=== PATIENT | male | born 1935 | race Caucasian/White ===

== ENCOUNTER 2017-05-18 16:31 | Inpatient (IN) | payer MEDICARE, OTHER ==
[2017-05-18] MEDS ORDERED: Acetaminophen 500 MG Tab PO ONE (16:40)
[2017-05-18] MEDS ORDERED: Sodium Chloride 0.9% 10 ML Syringe FLUSH PRN (16:43)
[2017-05-18] MEDS ORDERED: Sodium Chloride 0.9% 1,000 ML IV ONE (16:44)
--- NOTE | 2017-05-18 17:06 | EDM.PDOC ---
ED HPI GENERAL MEDICAL PROBLEM - General Chief Complaint: General Stated Complaint: LOSS OF BALANCE Time Seen by Provider: 05/18/17 16:35 Source of Information: Reports: Patient History Limitations: Reports: No Limitations - History of Present Illness INITIAL COMMENTS - FREE TEXT/NARRATIVE: May is an 82-year-old male with a history of cardiac disease with stent placement in 2014 who presents to the emergency department today with his family for evaluation of feeling off balance and unsteady since yesterday. reported that patient also seems to be having a delay with his responses and mildly slurred speech which started yesterday as well. Patient on arrival here complaints of generalized weakness, he denies any headache or visual changes. Patient was noted on initial exam to be febrile with a fever just under 103, patient endorses a nonproductive cough that started 2 days ago, he denies any current chest pain or shortness of breath, he denies any dysuria. Patient has been driving here from [place], his reports he was pulled over for swerving last night and was instructed by the police at that time to not drive any longer. Patient is currently on Coumadin. Patient denies any recent tick bites or nausea, vomiting, diarrhea. Duration: Day(s): (1) - Related Data Allergies Allergy/AdvReac Type Severity Reaction Status Date / Time tetracycline Allergy Rash Verified 05/18/17 16:47 Past Medical History Cardiovascular History: Reports: Afib, Stents Genitourinary History: Reports: Prostate Disorder Oncologic (Cancer) History: Reports: Basal Cell Carcinoma - Infectious Disease History Infectious Disease History: Reports: Chicken Pox - Past Surgical History HEENT Surgical History: Reports: Cataract Surgery, Detached Retina GI Surgical History: Reports: Cholecystectomy, Hernia, Inguinal Male Surgical History: Reports: Prostate Biopsy Musculoskeletal Surgical History: Reports: Knee Replacement Social & Family History - Tobacco Use Smoking Status *Q: Unknown Ever Smoked - Caffeine Use Caffeine Use: Reports: Coffee - Recreational Drug Use Recreational Drug Use: No ED ROS GENERAL - Review of Systems Review Of Systems: See Below Constitutional: Reports: Fever HEENT: Reports: Throat Pain Respiratory: Reports: Cough Endocrine: Reports: No Symptoms GI/Abdominal: Reports: No Symptoms : Reports: No Symptoms Musculoskeletal: Reports: No Symptoms Skin: Reports: No Symptoms Neurological: Reports: Weakness Psychiatric: Reports: No Symptoms ED EXAM, SEPSIS - Physical Exam Exam: See Below Exam Limited By: No Limitations General Appearance: Alert, WD/WN, Mild Distress Eye Exam: Bilateral Eye: EOMI Ears: Normal External Exam Nose: Normal Inspection Throat/Mouth: Normal Inspection, Normal Oropharynx Head: Atraumatic Neck: Normal Inspection, Supple, Non-Tender Respiratory/Chest: No Respiratory Distress, Lungs Clear Cardiovascular: No Murmur, Irregularly Irregular GI/Abdominal Exam: Normal Bowel Sounds, Soft, Non-Tender Back: Normal Inspection Extremities: Normal Inspection, Normal Range of Motion Neurological: Alert, Oriented, CN II-XII Intact, Normal Cognition, Normal Reflexes, No Motor/Sensory Deficits Psychiatric: Normal Affect, Normal Mood Skin: Warm, Dry, Intact EKG INTERPRETATION EKG Date: 05/18/17 Rhythm: A-Fib [place]: Normal P-Wave: Absent QRS: Normal ST-T: Normal QT: Normal Comparison: NA - No Prior EKG Course - Vital Signs Last Recorded V/S: Last Vital Signs Temp 100.1 C H 05/18/17 17:46 Pulse 64 05/18/17 17:46 Resp 22 H 05/18/17 17:46 BP 123/58 L 05/18/17 17:46 Pulse Ox 98 05/18/17 17:46 Feroz is an 82-year-old male who presents to the emergency department today with his family for evaluation of an unsteady gait and slow responses to questions since yesterday. Please refer to history of present illness and focused exam, patient on initial arrival here is febrile with a temp of just under 103, he appears to be in atrial fibrillation on the monitor which she denies any recent history of. EKG confirms this, sepsis alert was fired and appropriate orders that have been initiated. At this time it is not clear what patient's source is, he does endorse a nonproductive cough for 2 days, he denies any GI complaints or dysuria. Blood work is pending, chest x-ray is ordered, we will check a urine and blood cultures as well. Patient was given a gram of Tylenol for his fever, his blood pressure has remained stable and he is not tachycardic and from his medication list does not appear to be on a beta fabi at this time. NIH score is 0, patient on exam does not exhibit any neuro/focal deficits. reports patient is in chronic atrial fibrillation. Blood work returns with left shift, mildly low platelet count, mildly elevated CRP and Troponin. Lactic acid is normal. Strep is negative. Likely RLL infiltrate on CXR on my and Dr. Romano exam. CT of head negative on my review , awaiting radiology report. Blood cultures pending. UA negative for UTI. patient given one liter of NS, now running at 125 ml/hr. Discussed with patient observation admission for pneumonia and serial troponins. Patient remains chest pain free. Rocephin and Zithromax started IV. Patient agreeable to plan of care, Dr. Sepulveda, hospitalist notified and will admit patient. INR subtherapeutic at 1.8. - Orders/Labs/Meds Orders: Active Orders 24 hr Category Date Time Status EKG Documentation Completion [RC] ASDIRECTED Care 05/18/17 16:41 Active Peripheral IV Care [RC] . DIRECTED Care 05/18/17 16:43 Active Chest 2V [CR] Stat Exams 05/18/17 16:42 Taken Head wo Cont [CT] Stat Exams 05/18/17 17:19 Taken CULTURE BLOOD [BC] Urgent Lab 05/18/17 17:25 Received CULTURE BLOOD [BC] Urgent Lab 05/18/17 17:30 Received CULTURE STREP A CONFIRMATION [RM] Stat Lab 05/18/17 16:58 Results STREP SCRN A RAPID W CULT CONF [RM] Stat Lab 05/18/17 16:58 Results Azithromycin [Zithromax] 500 mg Med 05/18/17 18:15 Ordered Sodium Chloride 0.9% [Normal Saline] 250 ml IV Q24H Sodium Chloride 0.9% [Normal Saline] 1,000 ml Med 05/18/17 18:00 Active IV ASDIRECTED Sodium Chloride 0.9% [Saline Flush] Med 05/18/17 16:43 Active 10 ml FLUSH ASDIRECTED PRN cefTRIAXone [Rocephin] 1 gm Med 05/18/17 18:13 Ordered Sodium Chloride 0.9% [Normal Saline] 50 ml IV ONETIME Blood Culture x2 Reflex Set [OM.PC] Urgent Oth 05/18/17 16:41 Ordered Peripheral IV Insertion Adult [OM.PC] Routine Oth 05/18/17 16:43 Ordered EKG 12 Lead [EK] Stat Ther 05/18/17 16:41 Ordered Medication Orders Sodium Chloride (Normal Saline) 1,000 mls @ 125 mls/hr IV ASDIRECTED IDALIA Last Admin: 05/18/17 17:59 Dose: 125 mls/hr Azithromycin 500 mg/ Sodium (Chloride) 250 mls @ 250 mls/hr IV Q24H IDALIA Ceftriaxone Sodium 1 gm/ (Sodium Chloride) 50 mls @ 100 mls/hr IV ONETIME ONE Stop: 05/18/17 18:42 Sodium Chloride (Saline Flush) 10 ml FLUSH ASDIRECTED PRN PRN Reason: Keep Vein Open Last Admin: 05/18/17 16:55 Dose: 10 ml Labs: Laboratory Tests 05/18/17 05/18/17 05/18/17 Range/Units 16:56 16:56 16:56 WBC 8.7 (4.5-11.0) K/uL RBC 4.17 L (4.30-5.90) M/uL Hgb 13.7 (12.0-15.0) g/dL Hct 39.5 L (40.0-54.0) % MCV 95 (80-98) fL MCH 33 H (27-31) pg MCHC 35 (32-36) % Plt Count 106 L (150-400) K/uL Neut % (Auto) 82 H (36-66) % Lymph % (Auto) 8 L (24-44) % [place] % (Auto) 10 H (2-6) % Eos % (Auto) 0 L (2-4) % Baso % (Auto) 0 (0-1) % PT (9.5-12.0) sec INR (0.80-1.20) Sodium 131 L (140-148) mmol/L Potassium 4.1 (3.6-5.2) mmol/L Chloride 100 (100-108) mmol/L Carbon Dioxide 24 (21-32) mmol/L Anion Gap 11.1 (5.0-14.0) mmol/L BUN 14 (7-18) mg/dL Creatinine 1.3 (0.8-1.3) mg/dL Est Cr Clr Drug Dosing 47.26 mL/min Estimated GFR (MDRD) 53 L (>60) Glucose 121 H (74-106) mg/dL Lactic Acid 1.8 (0.4-2.0) mmol/L Calcium 7.8 L (8.5-10.1) mg/dL Total Bilirubin 1.0 (0.2-1.0) mg/dL AST 36 (15-37) U/L ALT 34 (12-78) U/L Alkaline Phosphatase 128 H (46-116) U/L Troponin I 0.069 H* (0.000-0.056) ng/mL C-Reactive Protein 3.37 H (0.0-0.3) mg/dL Total Protein 6.6 (6.4-8.2) g/dL Albumin 3.3 L (3.4-5.0) g/dL Globulin 3.3 (2.3-3.5) g/dL Albumin/Globulin Ratio 1.0 L (1.2-2.2) Urine Color Urine Appearance Urine pH (4.5-8.0) Ur Specific [place] (1.008-1.030) Urine Protein (NEGATIVE) mg/dL Urine Glucose (UA) (NEGATIVE) mg/dL Urine Ketones (NEGATIVE) mg/dL Urine Occult Blood (NEGATIVE) Urine Nitrite (NEGAITVE) Urine Bilirubin (NEGATIVE) Urine Urobilinogen (NORMAL) mg/dL Ur Leukocyte Esterase (NEGATIVE) Urine RBC (0-5) Urine WBC (0-5) Ur Epithelial Cells Amorphous Sediment Urine Bacteria Urine Mucus 05/18/17 05/18/17 Range/Units 16:56 17:43 WBC (4.5-11.0) K/uL RBC (4.30-5.90) M/uL Hgb (12.0-15.0) g/dL Hct (40.0-54.0) % MCV (80-98) fL MCH (27-31) pg MCHC (32-36) % Plt Count (150-400) K/uL Neut % (Auto) (36-66) % Lymph % (Auto) (24-44) % [place] % (Auto) (2-6) % Eos % (Auto) (2-4) % Baso % (Auto) (0-1) % PT 20.0 H (9.5-12.0) sec INR 1.82 H (0.80-1.20) Sodium (140-148) mmol/L Potassium (3.6-5.2) mmol/L Chloride (100-108) mmol/L Carbon Dioxide (21-32) mmol/L Anion Gap (5.0-14.0) mmol/L BUN (7-18) mg/dL Creatinine (0.8-1.3) mg/dL Est Cr Clr Drug Dosing mL/min Estimated GFR (MDRD) (>60) Glucose (74-106) mg/dL Lactic Acid (0.4-2.0) mmol/L Calcium (8.5-10.1) mg/dL Total Bilirubin (0.2-1.0) mg/dL AST (15-37) U/L ALT (12-78) U/L Alkaline Phosphatase (46-116) U/L Troponin I (0.000-0.056) ng/mL C-Reactive Protein (0.0-0.3) mg/dL Total Protein (6.4-8.2) g/dL Albumin (3.4-5.0) g/dL Globulin (2.3-3.5) g/dL Albumin/Globulin Ratio (1.2-2.2) Urine Color Yellow Urine Appearance Clear Urine pH 5.0 (4.5-8.0) Ur Specific [place] 1.015 (1.008-1.030) Urine Protein Negative (NEGATIVE) mg/dL Urine Glucose (UA) Normal (NEGATIVE) mg/dL Urine Ketones Negative (NEGATIVE) mg/dL Urine Occult Blood Moderate (NEGATIVE) Urine Nitrite Negative (NEGAITVE) Urine Bilirubin Negative (NEGATIVE) Urine Urobilinogen Normal (NORMAL) mg/dL Ur Leukocyte Esterase Negative (NEGATIVE) Urine RBC 0-5 (0-5) Urine WBC 0-5 (0-5) Ur Epithelial Cells Rare Amorphous Sediment Not seen Urine Bacteria Few Urine Mucus Few Meds: Medications Generic Name Dose Route Start Last Admin Trade Name Freq PRN Reason Stop Dose Admin Sodium Chloride 1,000 mls @ 125 mls/hr 05/18/17 18:00 05/18/17 17:59 Normal Saline IV 125 mls/hr ASDIRECTED IDALIA Administration Azithromycin 500 mg/ Sodium 250 mls @ 250 mls/hr 05/18/17 18:15 Chloride IV Q24H IDALIA Ceftriaxone Sodium 1 gm/ 50 mls @ 100 mls/hr 05/18/17 18:13 Sodium Chloride IV 05/18/17 18:42 ONETIME ONE Sodium Chloride 10 ml 05/18/17 16:43 05/18/17 16:55 Saline Flush FLUSH 10 ml ASDIRECTED PRN Administration Keep Vein Open Discontinued Medications Generic Name Dose Route Start Last Admin Trade Name Sandra PRN Reason Stop Dose Admin Acetaminophen 1,000 mg 05/18/17 16:40 05/18/17 16:56 Tylenol Extra Strength PO 05/18/17 16:41 1,000 mg ONETIME ONE Administration Sodium Chloride 1,000 mls @ 999 mls/hr 05/18/17 16:44 05/18/17 16:54 Normal Saline IV 05/18/17 17:44 999 mls/hr .BOLUS ONE Administration Departure - Departure Time of Disposition: 18:30 Disposition: Admitted As Inpatient 65 Condition: Good Clinical Impression: Elevated troponin, Chronic atrial fibrillation, Anticoagulant long-term use Pneumonia Qualifiers: Pneumonia type: due to unspecified organism Laterality: right Lung location: lower lobe of lung Qualified Code(s): J18.1 - Lobar pneumonia, unspecified organism - Discharge Information Referrals: PCP,None [Primary Care Provider] - Forms: ED Department Discharge - My Orders Last 24 Hours: My Active Orders 05/18/17 16:41 EKG Documentation Completion [RC] ASDIRECTED Blood Culture x2 Reflex Set [OM.PC] Urgent EKG 12 Lead [EK] Stat 05/18/17 16:42 Chest 2V [CR] Stat 05/18/17 16:43 Peripheral IV Care [RC] . DIRECTED Sodium Chloride 0.9% [Saline Flush] 10 ml FLUSH ASDIRECTED PRN Peripheral IV Insertion Adult [OM.PC] Routine 05/18/17 16:58 CULTURE STREP A CONFIRMATION [RM] Stat STREP SCRN A RAPID W CULT CONF [RM] Stat 05/18/17 17:19 Head wo Cont [CT] Stat 05/18/17 17:25 CULTURE BLOOD [BC] Urgent 05/18/17 17:30 CULTURE BLOOD [BC] Urgent 05/18/17 18:00 Sodium Chloride 0.9% [Normal Saline] 1,000 ml IV ASDIRECTED 05/18/17 18:13 cefTRIAXone [Rocephin] 1 gm Sodium Chloride 0.9% [Normal Saline] 50 ml IV ONETIME 05/18/17 18:15 Azithromycin [Zithromax] 500 mg Sodium Chloride 0.9% [Normal Saline] 250 ml IV Q24H - Assessment/Plan Last 24 Hours: My Active Orders 05/18/17 16:41 EKG Documentation Completion [RC] ASDIRECTED Blood Culture x2 Reflex Set [OM.PC] Urgent EKG 12 Lead [EK] Stat 05/18/17 16:42 Chest 2V [CR] Stat 05/18/17 16:43 Peripheral IV Care [RC] . DIRECTED Sodium Chloride 0.9% [Saline Flush] 10 ml FLUSH ASDIRECTED PRN Peripheral IV Insertion Adult [OM.PC] Routine 05/18/17 16:58 CULTURE STREP A CONFIRMATION [RM] Stat STREP SCRN A RAPID W CULT CONF [RM] Stat 05/18/17 17:19 Head wo Cont [CT] Stat 05/18/17 17:25 CULTURE BLOOD [BC] Urgent 05/18/17 17:30 CULTURE BLOOD [BC] Urgent 05/18/17 18:00 Sodium Chloride 0.9% [Normal Saline] 1,000 ml IV ASDIRECTED 05/18/17 18:13 cefTRIAXone [Rocephin] 1 gm Sodium Chloride 0.9% [Normal Saline] 50 ml IV ONETIME 05/18/17 18:15 Azithromycin [Zithromax] 500 mg Sodium Chloride 0.9% [Normal Saline] 250 ml IV Q24H
[2017-05-18] MEDS ORDERED: Sodium Chloride 0.9% 1,000 ML IV SCH ×2 (18:00→20:27)
[2017-05-18] MEDS ORDERED: cefTRIAXone 1 GM in Sodium Chloride 0.9% 50 ML IV ONE (18:13)
[2017-05-18] MEDS ORDERED: Azithromycin 500 MG in Sodium Chloride 0.9% 250 ML IV SCH (18:15)
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
[2017-05-18] MEDS ORDERED: Acetaminophen 325 MG Tab PO PRN (20:27)
[2017-05-18] MEDS ORDERED: Ondansetron 4 MG Tab.DIS PO PRN (20:27)
[2017-05-18] MEDS ORDERED: guaiFENesin/Dextromethorphan 100-10 MG/5 ML Soln 10 ML Cup PO PRN (20:27)
[2017-05-18] MEDS ORDERED: Polyethylene Glycol 3350 Powder 17 GM Packet PO PRN (20:27)
[2017-05-18] MEDS ORDERED: Zolpidem 5 MG Tab PO PRN (20:38)
[2017-05-18] MEDS ORDERED: Warfarin 5 MG Tab PO SCH (20:45)
[2017-05-19] MEDS ORDERED: Lisinopril 5 MG Tab PO SCH (07:30)
[2017-05-19] MEDS ORDERED: Pantoprazole 40 MG Tab.CR PO SCH (07:30)
--- NOTE | 2017-05-19 08:28 | CR ---
Mild cardiomegaly. Emphysematous change. No focal consolidation.
[2017-05-19] MEDS ORDERED: Vitamin B6-pyridOXINE 50 MG Tab PO SCH (09:00)
[2017-05-19] MEDS ORDERED: Non-Formulary Medication 1 Each (Potassium [Potassium] 99 MG) PO SCH (09:00)
[2017-05-19] MEDS ORDERED: Lactobacillus Rhamnosus GG (Probiotic) Cap PO SCH (09:00)
[2017-05-19] MEDS ORDERED: Aspirin 81 MG Tab.Chew PO SCH (09:00)
[2017-05-19] MEDS ORDERED: Folic Acid 1 MG Tab PO SCH (09:00)
--- NOTE | 2017-05-19 10:36 | PCM.DCSUM1 ---
Discharge Summary - Hospital Course Brief History: 82-year-old male with history of coronary artery disease who presented with fever and weakness. He was admitted for management of probable right lower lobe pneumonia. - Discharge Data Discharge Date: 05/19/17 Discharge Disposition: Home, Self-Care 01 Condition: Good - Discharge Diagnosis/Problem(s) (1) Pneumonia SNOMED Code(s): 666748580 ICD Code: J18.9 - PNEUMONIA, UNSPECIFIED ORGANISM Status: Acute Qualifiers: Pneumonia type: due to unspecified organism Laterality: right Lung location: lower lobe of lung Qualified Code(s): J18.1 - Lobar pneumonia, unspecified organism (2) Elevated troponin SNOMED Code(s): 325134433, 382909242 ICD Code: R74.8 - ABNORMAL LEVELS OF OTHER SERUM ENZYMES Status: Acute (3) Chronic atrial fibrillation SNOMED Code(s): 580830167 ICD Code: I48.2 - CHRONIC ATRIAL FIBRILLATION Status: Chronic - Patient Summary/Data Consults: Consultations 05/19/17 07:00 PT Evaluation and Treatment [CONS] Routine Please Evaluate and Treat. PT Reason for Consult: Strengthening This query below is only for informational purposes and is not editable. Labs Pending at D/C: final results of blood cultures which are negative at the time of discharge Hospital Course: Tahir presented with weakness, mild confusion and a mild cough. Workup in the emergency room was consistent with a right lower lung pneumonia and he had an impressive fever at the time of presentation. His troponin was also mildly elevated at the time of presentation.Cultures were obtained, antibiotics initiated and he was admitted to the hospital for further management. he did not have active her neck symptoms and serial troponin levels remained stable. His EKG did not suggest ischemia. I suspect the mild elevation was related to his pneumonia. Although his chest x-ray was not impressive he did have a few crackles in the right lung where we thought we saw an infiltrate. The crackles did increase overnight after some hydration. He did not ever require supplemental oxygen. He has not had any fevers since he presented to the emergency room. He feels much better the day after admission. He has been up and walking around without difficulty. I believe that he is safe for outpatient management at this time though I expected a longer stay as discussed below. He will be discharged to home with his with the plan to complete a total of 5 days of antibiotic therapy. Tahir was admitted to inpatient status with the idea that management of his pneumonia would require a hospital stay that spanned 2 or more midnights. He improved much more quickly than expected and was able to be discharged the day after admission. - Patient Instructions Diet: Regular Diet as Tolerated Activity: As Tolerated Driving: May Drive Today Showering/Bathing: May Shower Notify Provider of: Fever, Increased Pain, Nausea and/or Vomiting Other/Special Instructions: 1. You were in the hospital for management of a right lower lung pneumonia. You have improved with antibiotics and IV fluids. I do recommend four additional days of antibiotic therapy. You should take a azithromycin 500 mg once daily at bedtime. Your first dose is due tonight. You should also take Cefdinir 300 mg twice daily for 9 additional doses. Your first dose is due tonight. If you have trouble with cough or sore throat cough drops or lozenges may be helpful to alleviate these symptoms. 2. In the emergency room we noted that one of your blood tests called troponin was very mildly elevated. This suggested that there was irritation/injury to your heart muscle. This was a very low level elevation and was probably a result of the pulmonary infection. I do not believe that additional workup is needed at this time. 3. Please continue your usual medications as previously prescribed. 4. Please seek medical attention if you develop fever greater than 101, have sudden onset of shortness of breath and/or chest pain or if you develop persistent vomiting or diarrhea. - Discharge Plan Prescriptions/Med Rec: Azithromycin 500 mg PO BEDTIME #4 tablet Cefdinir 300 mg PO BID #9 capsule Home Medications: Home Meds Aspirin 81 mg PO DAILY 05/18/17 [History] Calcium Carbonate/Vitamin D3 [Calcium 500-Vit D3 600 Caplet] 1 tab PO DAILY [History] Cholecalciferol (Vitamin D3) [Vitamin D3] 1,000 unit PO DAILY 05/18/17 [History] Diazepam [Valium] 5 mg PO BEDTIME PRN 05/18/17 [History] Diclofenac Sodium [Voltaren 1% Gel] 1 applic TOP QID PRN 05/18/17 [History] Fish Oil/[place]-3 Fatty Acids [Fish Oil 1,000 MG] 1,000 mg PO DAILY 05/18/17 [ History] Folic Acid 0.4 mg PO DAILY 05/18/17 [History] Lactobacillus Acidophilus [Acidophilus] 10 mg PO DAILY 05/18/17 [History] Lisinopril 5 mg PO ACBREAKFAST 05/18/17 [History] Magnesium Amino Acid Chelate [Magnesium] 125 mg PO DAILY 05/18/17 [History] Melatonin 3 mg PO DAILY 05/18/17 [History] Multivit,Ther Iron,Ca,Fa & Min [Thera-M Caplet] 1 tab PO DAILY 05/18/17 [History ] Nitroglycerin [Nitrostat] 0.4 mg PO ASDIRECTED PRN 05/18/17 [History] Omeprazole Magnesium [Prilosec Otc] 20 mg PO DAILY 05/18/17 [History] Potassium 99 mg PO DAILY 05/18/17 [History] Pyridoxine HCl [Vitamin B-6] 500 mg PO DAILY 05/18/17 [History] Warfarin [Coumadin] 5 mg PO DAILY 05/18/17 [History] Zinc Acetate [Galzin] 50 mg PO ASDIRECTED 05/18/17 [History] Zolpidem [Ambien] 10 mg PO BEDTIME PRN 05/18/17 [History] atorvaSTATin [Lipitor] 40 mg PO BEDTIME 05/18/17 [History] Azithromycin 500 mg PO BEDTIME #4 tablet 05/19/17 [Rx] Cefdinir 300 mg PO BID #9 capsule 05/19/17 [Rx] Patient Handouts: Cefdinir capsules, Azithromycin tablets, Community-Acquired Pneumonia, Adult Referrals: PCP,None [Primary Care Provider] - - Discharge Summary/Plan Comment DC Time >30 min.: No (25) - Patient Data Vitals - Most Recent: Last Vital Signs Temp 37.2 C 05/19/17 07:15 Pulse 57 L 05/19/17 07:15 Resp 16 05/19/17 07:15 BP 112/68 05/19/17 08:55 Pulse Ox 97 05/19/17 07:15 Weight - Most Recent: 90.31 kg I&O - Last 24 hours: Intake & Output 05/18/17 05/19/17 05/19/17 22:59 06:59 14:59 Intake Total 2400 720 Balance 2400 720 Lab Results - Last 24 hrs: Laboratory Results - last 24 hr 05/18/17 05/19/17 05/19/17 Range/Units 21:05 05:00 05:11 WBC 6.4 (4.5-11.0) K/uL RBC 4.17 L (4.30-5.90) M/uL Hgb 13.4 (12.0-15.0) g/dL Hct 39.8 L (40.0-54.0) % MCV 95 (80-98) fL MCH 32 H (27-31) pg MCHC 34 (32-36) % Plt Count 97 L (150-400) K/uL PT (9.5-12.0) sec INR (0.80-1.20) Sodium (140-148) mmol/L Potassium (3.6-5.2) mmol/L Chloride (100-108) mmol/L Carbon Dioxide (21-32) mmol/L Anion Gap (5.0-14.0) mmol/L BUN (7-18) mg/dL Creatinine (0.8-1.3) mg/dL Est Cr Clr Drug Dosing mL/min Estimated GFR (MDRD) (>60) Glucose (74-106) mg/dL Calcium (8.5-10.1) mg/dL Troponin I 0.063 H* 0.070 H* (0.000-0.056) ng/mL 05/19/17 05/19/17 Range/Units 05:11 05:11 WBC (4.5-11.0) K/uL RBC (4.30-5.90) M/uL Hgb (12.0-15.0) g/dL Hct (40.0-54.0) % MCV (80-98) fL MCH (27-31) pg MCHC (32-36) % Plt Count (150-400) K/uL PT 16.9 H (9.5-12.0) sec INR 1.55 H (0.80-1.20) Sodium 138 L (140-148) mmol/L Potassium 3.9 (3.6-5.2) mmol/L Chloride 104 (100-108) mmol/L Carbon Dioxide 25 (21-32) mmol/L Anion Gap 12.9 (5.0-14.0) mmol/L BUN 13 (7-18) mg/dL Creatinine 1.2 (0.8-1.3) mg/dL Est Cr Clr Drug Dosing 52.71 mL/min Estimated GFR (MDRD) 58 L (>60) Glucose 116 H (74-106) mg/dL Calcium 8.0 L (8.5-10.1) mg/dL Troponin I (0.000-0.056) ng/mL Med Orders - Current: Current Medications Acetaminophen (Tylenol) 650 mg PO Q4H PRN PRN Reason: Pain (Mild 1-3)/fever Last Admin: 05/19/17 04:14 Dose: 650 mg Aspirin (Aspirin) 81 mg PO DAILY [facility] Last Admin: 05/19/17 08:56 Dose: 81 mg Atorvastatin Calcium (Lipitor) 40 mg PO BEDTIME [facility] Folic Acid (Folic Acid) 0.5 mg PO DAILY [facility] Last Admin: 05/19/17 08:56 Dose: 0.5 mg Guaifenesin/Dextromethorphan (Robitussin Dm) 10 ml PO Q6H PRN PRN Reason: Cough Azithromycin 500 mg/ Sodium (Chloride) 250 mls @ 250 mls/hr IV Q24H [facility] Last Admin: 05/18/17 19:50 Dose: 250 mls/hr Sodium Chloride (Normal Saline) 1,000 mls @ 125 mls/hr IV ASDIRECTED [facility] Last Admin: 05/19/17 02:59 Dose: 125 mls/hr Lactobacillus Rhamnosus (Culturelle) 1 cap PO DAILY [facility] Last Admin: 05/19/17 08:56 Dose: 1 cap Lisinopril (Prinivil) 5 mg PO ACBREAKFAST [facility] Last Admin: 05/19/17 08:55 Dose: 5 mg Non-Formulary Medication (Potassium [Potassium]) 99 mg PO DAILY [facility] Ondansetron HCl (Zofran Odt) 4 mg PO Q6H PRN PRN Reason: Nausea able to take PO Pantoprazole Sodium (Protonix) 40 mg PO ACBREAKFAST [facility] Last Admin: 05/19/17 08:56 Dose: 40 mg Polyethylene Glycol (Miralax) 17 gm PO DAILY PRN PRN Reason: Constipation Pyridoxine HCl (Vitamin B6-Pyridoxine) 500 mg PO DAILY [facility] Sodium Chloride (Saline Flush) 10 ml FLUSH ASDIRECTED PRN PRN Reason: Keep Vein Open Last Admin: 05/18/17 16:55 Dose: 10 ml Warfarin Sodium (Coumadin) 5 mg PO DAILY@1300 [facility] Last Admin: 05/18/17 21:07 Dose: 5 mg Zolpidem Tartrate (Ambien) 10 mg PO BEDTIME PRN PRN Reason: Sleep Last Admin: 05/18/17 21:06 Dose: 10 mg Discontinued Medications Acetaminophen (Tylenol Extra Strength) 1,000 mg PO ONETIME ONE Stop: 05/18/17 16:41 Last Admin: 05/18/17 16:56 Dose: 1,000 mg Sodium Chloride (Normal Saline) 1,000 mls @ 999 mls/hr IV .BOLUS ONE Stop: 05/18/17 17:44 Last Admin: 05/18/17 16:54 Dose: 999 mls/hr Sodium Chloride (Normal Saline) 1,000 mls @ 125 mls/hr IV ASDIRECTED [facility] Last Admin: 05/18/17 17:59 Dose: 125 mls/hr Ceftriaxone Sodium 1 gm/ (Sodium Chloride) 50 mls @ 100 mls/hr IV ONETIME ONE Stop: 05/18/17 18:42 Last Admin: 05/18/17 18:22 Dose: 100 mls/hr *Q Meaningful Use (DIS) - VTE *Q VTE Criteria *Q: - Stroke *Q Stroke Criteria *Q: - AMI *Q AMI Criteria *Q:
[2017-05-19 10:51] VITALS: BP 119/73
[2017-05-19] MEDS ORDERED: atorvaSTATin 20 MG Tab PO SCH (21:00)
== END 2017-05-19 14:33 | disposition home or self-care (01) | DRG 195 ==
LOC: JP.ED 16:31 → EDBD 16:31 → JP.MS 18:57
PROVIDERS: ADMIT Internal Medicine; ATTEND Internal Medicine
DX: J18.1 Lobar pneumonia, unspecified organism (principal); I48.2 Chronic atrial fibrillation; I25.10 Atherosclerotic heart disease of native coronary artery without angina pectoris; Z79.01 Long term (current) use of anticoagulants; R74.8 Abnormal levels of other serum enzymes; R53.1 Weakness; R50.9 Fever, unspecified; R42 Dizziness and giddiness; R26.9 Unspecified abnormalities of gait and mobility; Z95.5 Presence of coronary angioplasty implant and graft; N42.9 Disorder of prostate, unspecified; Z85.828 Personal history of other malignant neoplasm of skin; Z96.659 Presence of unspecified artificial knee joint; Z79.82 Long term (current) use of aspirin; Z88.1 Allergy status to other antibiotic agents
CPT/HCPCS: 36415; 70450; 71020 ×2; 80053; 81001; 83605; 84484; 85025; 85610; 86140; 87040 ×2; 87081; 87430; 93005; A9270; J0696; J7040 ×2; J7050 ×2; 80048; 85027; 93010; 96361; 96365; 96367; 97162-GP; 99285; 99285-25; J0456